=== PATIENT | female | born 1960 | race Two or more races ===

== ENCOUNTER 2017-03-12 05:37 | Day surgery (SDC) | payer OTHER ==
[2017-03-08 11:29] VITALS: BMI 37.0
[2017-03-12] MEDS ORDERED: LIDOCAINE HCL 1%, 10 MG/ML (20ML VIAL) ONE (13:08)
[2017-03-12] MEDS ORDERED: ceFAZolin SODIUM 1 GM VIAL IVPB ONE (13:28)
[2017-03-12] MEDS ORDERED: MIDAZOLAM HCL 2 MG/2 ML SINGLE DOSE VIAL ONE ×2 (13:32→13:47)
[2017-03-12] MEDS ORDERED: PROPOFOL 20 ML ONE (14:13)
--- NOTE | 2017-03-12 14:40 | OP ---
Operative Note - Note: Operative Date: 03/12/17 Pre-Operative Diagnosis: neurogenic bladder Operation: full interstim implant Implants: Interstim neuromodulator Post-Operative Diagnosis: Same as Pre-op Surgeon: Jai Cao Anesthesia: General, Local, Fractional Operative Report Dictated: Yes
[2017-03-12] MEDS ORDERED: oxyCODONE HCL 5 MG TABLET PO PRN (15:23)
[2017-03-12] MEDS ORDERED: ONDANSETRON 4 MG/2 ML VIAL IVPUSH PRN (15:23)
[2017-03-12] MEDS ORDERED: LACTATED RINGERS SOLUTION 1,000 ML IV SCH (15:30)
[2017-03-12 15:40] VITALS: TEMP 98.3
[2017-03-12 17:10] VITALS: BP 138/80; PULSE 76
--- NOTE | 2017-03-19 13:58 | OP ---
DATE OF OPERATION: 03/12/2017 PREOPERATIVE DIAGNOSES: Urinary incontinence and neurogenic bladder. POSTOPERATIVE DIAGNOSES: Urinary incontinence and neurogenic bladder. PROCEDURE: 1. Complete InterStim system implantation with incision and implantation of tined quadripolar lead electrodes into foramen S3. 2. Fluoroscopic guidance for needle placement. 3. Subcutaneous implantation of sacral nerve neurostimulator, electronic analysis and complex programming. INDICATIONS FOR THE PROCEDURE: Patient has severe urinary frequency and urgency with urge incontinence. The patient was informed of the risks and benefits of the procedures and agreed to undertake this procedure. DESCRIPTION OF PROCEDURE: The patient was properly identified and placed in prone position as per operating room protocol. MAC anesthesia was administered. The patient was given 1 g of Ancef. Pillows were placed under the lower abdomen to flatten the sacrum and under the shins to allow the toes to dangle freely. Tape was placed on each buttock and pulled laterally to separate cheeks adequately to visualize anal sphincter. The patient was prepped and draped in the usual sterile manner using ChloraPrep prep solution. The C-arm was moved into the PA position to provide fluoroscopy visual and the midline of the vertebrae. S1 notches and medial foraminal borders were marked. The C-arm was moved to the lateral position to image the area from sacral promontory to the coccyx. Local injection of lidocaine was administered. A 3.5-inch size needle was introduced approximately 2 cm above the SI notch and 3 cm lateral to the vertebral midline, feeling for foraminal margins until the S3 foramen was identified and penetrated. The depth of the needle was confirmed and adjusted fluoroscopically. Proper needle position was confirmed by patient identification of location of sensation, direct observation of the lifting of the perineum or bellowing, and observation of plantar flexion of the great toe utilizing the test stimulator box. The needle stylet was removed and a directional guidewire was placed and confirmed fluoroscopically. The foramen needle was removed. An incision was made peripherally to the directional guidewire through the fascial layer. The dilator and introducer sheath were placed over the directional guidewire and directed into the foramen until the opaque marker of the dilator was seen on the anterior rim of the sacrum. The dilator obturator was unlocked and removed. The lead was then placed through the introducer sheath to the first white line. Position was checked fluoroscopically. The lead was then further introduced until 3 electrodes were visible below the sacrum. Each electrode was tested for location of patient sensation, visualization of mariella and plantar flexion of the great toe. After satisfactory positioning was confirmed, under continuous fluoroscopy, the introducer sheath was retracted, deploying the lead tines into the perisacral tissue. Further incision was made into the subcutaneous tissue posterior to the iliac crest and blunt dissection was continued until the gluteal fascia was identified and hemostasis was achieved, allowing for a sufficient pocket for the neurostimulator. A tunneling tool and tube were placed from the lead subcutaneously to the incised pocket site. The tunneling tool was removed and the lead was fed through the tube and pulled out at the pocket site. The lead was cleansed of bodily fluids and a boot was placed over the lead. The lead was inserted into the InterStim II pulse generator and the metal bands were aligned with the white lead tip clearly visible in the distal portion of the pulse generator header. The single set screw was tightened with the hex wrench. The pulse generator was placed into the subcutaneous pocket with the etched identification side placed upward and the extension wrapped counterclockwise around the pulse generator. The programming head was placed over the implanted neurostimulator. The impedance was verified to ensure adequate lead placement and the parameters were within normal limits. If impedance is greater than the normal limits, a second interrogation is required. If the second interrogation is required, further troubleshooting may be required. Impedances were checked, confirmed to be within normal limits at greater than 50 and less than 4000. After implantation of the neurostimulator was completed, complex programming of the neurostimulator was performed based on impedance values. Final electrode sensations were set to 0+1-2-. Estimated time for analysis and complex programming was 30 minutes. The wounds were irrigated with antibiotic solution and water and closed with a subcutaneous and subcuticular stitch. Counts were correct. Steri-Strips and gauze were placed over the incision under the cable connector. The estimated blood loss was less than 3 mL. The patient was transferred to postop in satisfactory condition. Using the clinician embedded software programmer, the patient was programmed to the lead of optimum sensation and given instructions on utilizing the patient embedded software programmer prior to discharge. ADIEL BLEDSOE M.D. [id number]
== END 2017-03-12 17:11 | disposition home or self-care (01) ==
LOC: JASU-SURG 05:37
PROVIDERS: ATTEND Urology
PROC: 01HY0MZ Insertion of Neurostimulator Lead into Peripheral Nerve, Open Approach (ICD-10-PCS; 2017-03-12)
PROC: 0JH70BZ Insertion of Single Array Stimulator Generator into Back Subcutaneous Tissue and Fascia, Open Approach (ICD-10-PCS; principal; 2017-03-12 13:45)
DX: N39.498 Other specified urinary incontinence (principal); N31.9 Neuromuscular dysfunction of bladder, unspecified
CPT/HCPCS: 64581; 64590; L8680; L8686; 76000-TC; 94760

== ENCOUNTER 2017-09-14 13:08 | Emergency (ER) | payer OTHER ==
[2017-09-14 13:22] VITALS: BP 151/77; PULSE 84; TEMP 98.1; BMI 38.4
[2017-09-14] MEDS ORDERED: KETOROLAC TROMETHAMINE 60 MG/2 ML VIAL IM ONE (15:05)
[2017-09-14] MEDS ORDERED: KETOROLAC TROMETHAMINE 60 MG/2 ML VIAL ONE (15:16)
[2017-09-14 15:19] LABS: URINE APPEARANCE SLCLOUDY; URINE BILIRUBIN NEGATIVE (NEGATIVE); URINE BLOOD 3+ (NEGATIVE); URINE COLOR YELLOW; URINE GLUCOSE (UA) NEGATIVE (NEGATIVE); URINE KETONE NEGATIVE (NEGATIVE); URINE NITRITE NEGATIVE (NEGATIVE); URINE UROBILINOGEN NEGATIVE mg/dL (0.2-1.0)
[2017-09-14 15:24] LABS: URINE LEUK ESTERASE 3+ (NEGATIVE); URINE PROTEIN 2+ (NEGATIVE)
[2017-09-14 15:38] LABS: EPI CELLS MODERATE /HPF (FEW); URINE MUCUS RARE
--- NOTE | 2017-09-14 15:44 | PDOC ---
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 pt denies abd pain denies numbness or tingling to the legs, no incontinence of urine or bowel. Occurred: reports: this afternoon Severity: reports: moderate Pain Location: reports: back Method of Injury: Yes: other (lifting and turning) Past History - Past Medical History Allergies/Adverse Reactions: Allergies Allergy/AdvReac Type Severity Reaction Status Date / Time No Known Allergies Allergy Verified 09/14/17 13:18 Home Medications: Ambulatory Orders Amlodipine Besylate 5 mg PO DAILY 03/08/17 Metformin HCl [Glucophage] 1,000 mg PO BID 03/08/17 Metoprolol Tartrate 50 mg PO DAILY 03/08/17 Sitagliptin Phosphate [Januvia] 50 mg PO DAILY 03/08/17 Ciprofloxacin HCl [Cipro] 500 mg PO BID #6 tablet 09/14/17 Cyclobenzaprine HCl [Flexeril -] 10 mg PO TID PRN #15 tablet 09/14/17 Naproxen [Naprosyn -] 500 mg PO BID PRN #14 tablet 09/14/17 Anemia: No Asthma: No Cancer: No Cardiac Disorders: No CVA: No COPD: No CHF: No Dementia: No Diabetes: Yes GI Disorders: No Disorders: No HTN: Yes Hypercholesterolemia: No Liver Disease: No Seizures: No Thyroid Disease: No - Surgical History Cholecystectomy: Yes Neurologic Surgery: Yes (spine cervial and lumbar) Orthopedic Surgery: Yes (l wrist) - Suicide/Smoking/Psychosocial Hx Smoking History: Never smoked Hx Alcohol Use: No Drug/Substance Use Hx: No Substance Use Type: None Hx Substance Use Treatment: No *Physical Exam - Vital Signs Last Vital Signs Temp Pulse Resp BP Pulse Ox 98.1 F 84 19 151/77 97 09/14/17 13:18 09/14/17 13:18 09/14/17 13:18 09/14/17 13:18 09/14/17 13:18 - Physical Exam General Appearance: Yes: Nourished, Appropriately Dressed, Obese HEENT: positive: EOMI, JUNIOR Neck: positive: Supple Respiratory/Chest: positive: Lungs Clear, Normal Breath Sounds Cardiovascular: positive: Regular Rhythm, Regular Rate Gastrointestinal/Abdominal: positive: Normal Bowel Sounds, Soft. negative: Tender Musculoskeletal: positive: Normal Inspection, Vertebral Tenderness (lumbar spine on the surgical scar) Extremity: positive: Normal Capillary Refill, Normal Inspection, Normal Range of Motion, Other (neg SLR bilaterally ). negative: Tender Integumentary: positive: Normal Color, Dry, Warm Neurologic: positive: Fully Oriented, Alert, Normal Mood/Affect, Normal Response , Motor Strength 5/5, Finger to Nose (intact) ED Treatment Course - ADDITIONAL ORDERS Additional order review: Laboratory Results 09/14/17 14:53 Urine Color Yellow Urine Appearance Slcloudy Urine pH 5.0 Ur Specific [place] 1.026 Urine Protein 2+ H Urine Glucose (UA) Negative Urine Ketones Negative Urine Blood 3+ H Urine Nitrite Negative Urine Bilirubin Negative Urine Urobilinogen Negative Ur Leukocyte Esterase 3+ H - RADIOLOGY Radiology Studies Ordered: Category Date Time Status SPINE-LUMBAR ONLY [RAD] Stat Radiology 09/14/17 15:33 Ordered - Medications Given in the ED: ED Medications Discontinued Medications Generic Name Dose Route Start Last Admin Trade Name Freq PRN Reason Stop Dose Admin Ketorolac Tromethamine 60 mg 09/14/17 15:05 09/14/17 15:19 Toradol Injection - IM 09/14/17 15:06 60 mg ONCE ONE Administration Medical Decision Making - Medical Decision Making 09/14/17 15:43 cc: low back pain after helping lift a patient at work pt has history of back and neck pain and surgeries in the past pt has no diff ambualting no saddle anesthesia neg urine or bowel dysfunction will give toradol and get xray of lumbar spine *DC/Admit/Observation/Transfer Diagnosis at time of Disposition: Back pain at L4-L5 level - Discharge Dispostion Disposition: HOME Condition at time of disposition: Good - Prescriptions Prescriptions: Ciprofloxacin HCl [Cipro] 500 mg PO BID #6 tablet Cyclobenzaprine HCl [Flexeril -] 10 mg PO TID PRN #15 tablet PRN Reason: Muscle Spasms Naproxen [Naprosyn -] 500 mg PO BID PRN #14 tablet PRN Reason: Back Pain - Referrals Referrals: Coy Acuña [Primary Care Provider] - - Patient Instructions Additional Instructions: take flexeril for any muscle spasms with naprosyn for pain take your percocet that you have for SEVERE pain warm compresses alternated with ice pack can help with pain follow with your doctor in 2-3 days for follow up and to repeat the urine test, today it had some blood and bacteria , we have sent a culture but will give you 3 days of antibiotic return to ER for any worsening symptoms - Post Discharge Activity Forms/Work/School Notes: Back to Work
== END 2017-09-14 16:30 | disposition home or self-care (01) ==
LOC: JERFT 13:08
PROC: 3E0233Z Introduction of Anti-inflammatory into Muscle, Percutaneous Approach (ICD-10-PCS; principal; 2017-09-14)
DX: S39.82XA Other specified injuries of lower back, initial encounter (principal); X50.0XXA Overexertion from strenuous movement or load, initial encounter; X50.9XXA Other and unspecified overexertion or strenuous movements or postures, initial encounter; Y93.F2 Activity, caregiving, lifting; Y92.128 Other place in nursing home as the place of occurrence of the external cause; Y99.0 Civilian activity done for income or pay; I10 Essential (primary) hypertension; E11.9 Type 2 diabetes mellitus without complications; Z79.84 Long term (current) use of oral hypoglycemic drugs
CPT/HCPCS: 72100-TC; 81003; 81015; 87086; 99281-25

== ENCOUNTER 2021-03-21 14:18 | Emergency (ER) | payer OTHER ==
[2021-03-21 14:59] VITALS: BP 130/61; PULSE 82; TEMP 98.2; BMI 31.1
[2021-03-21] MEDS ORDERED: ACETAMINOPHEN 500 MG TABLET (FP) PO ONE (15:06)
[2021-03-21] MEDS ORDERED: ACETAMINOPHEN 325 MG TABLET (FP) ONE (15:17)
[2021-03-21] MEDS ORDERED: IBUPROFEN 600 MG TABLET (FP) PO ONE ×2 (17:52→18:08)
== END 2021-03-21 18:13 | disposition home or self-care (01) ==
LOC: JER 14:18
DX: M54.6 Pain in thoracic spine (principal); S09.90XA Unspecified injury of head, initial encounter; S89.92XA Unspecified injury of left lower leg, initial encounter
CPT/HCPCS: 70450-TC; 72125-TC; 72128-TC; 72131-TC; 73562-TC-LT-FY; 99285-25

== ENCOUNTER 2024-12-16 12:17 | Emergency (ER) | payer OTHER ==
[2024-12-16 12:37] VITALS: RESP 20; TEMP 97.9; BMI 33.1
[2024-12-16 13:17] LABS: ABSOLUTE IMMATURE GRANULOCYTES 0.02 x10^3/uL (0.0-0.031); BASOPHILS # 0.04 x10^3/uL (0.01-0.08); EOSINOPHIL % 2.1 % (0.7-5.8); EOSINOPHILS # 0.16 x10^3/uL (0.04-0.36); HEMOGLOBIN 14.2 g/dL (11.2-15.7); MCHC 34.6 g/dl (32.2-35.5); MEAN CELL VOLUME 77.9 fl (79.4-94.8); MEAN PLT VOLUME 10.7 fl (9.4-12.3); MONOCYTE # 0.54 x10^3/uL (0.24-0.86); MONOCYTE % 7.2 % (4.7-12.5); PLATELET COUNT 290 x10^3/uL (182-369); RDW 13.7 % (12.4-16.4)
[2024-12-16 13:24] LABS: INR 1.15 (0.83-1.09); PROTHROMBIN TIME (PATIENT) 12.6 SEC (9.7-13.0)
[2024-12-16 13:27] LABS: ACTIVATED PTT 33.3 SECONDS (25.2-36.5)
[2024-12-16 13:47] LABS: CHLORIDE 103 mmol/L (98-107); SODIUM 134 mmol/L (136-145)
[2024-12-16 13:50] LABS: ALBUMIN 3.7 g/dl (3.4-5.0); BLOOD UREA NITROGEN 14.6 mg/dL (7-18); CALCIUM 10.5 mg/dL (8.5-10.1); CO2 25 mmol/L (21-32); GLUCOSE,RANDOM 110 mg/dL (74-106)
[2024-12-16 13:52] LABS: ANION GAP 6 mmol/L (4-13); POTASSIUM 6.1 mmol/L (3.5-5.1)
[2024-12-16 13:53] LABS: SGOT/AST 41 U/L (15-37); SGPT/ALT 23 U/L (13-61)
[2024-12-16 13:55] LABS: ALK PHOS 98 U/L (45-117); TOT PROT 8.3 g/dl (6.4-8.2)
[2024-12-16 14:56] LABS: POTASSIUM 5.8 mmol/L (3.5-5.1)
[2024-12-16 14:57] LABS: CALCIUM 11.2 mg/dL (8.5-10.1)
[2024-12-16 14:58] LABS: ALBUMIN 3.7 g/dl (3.4-5.0); BLOOD UREA NITROGEN 15.3 mg/dL (7-18)
[2024-12-16 15:03] LABS: BILIRUBIN,TOTAL 0.8 mg/dL (0.2-1)
[2024-12-16 15:22] LABS: N-TERMINAL BNP 34.2 pg/ml (5-125)
[2024-12-16] MEDS: LACTATED RINGERS SOLUTION 1000 ML INFUS.BAG IV ONE (16:09)
[2024-12-16 16:24] LABS: MAGNESIUM 1.9 mg/dL (1.8-2.4)
[2024-12-16 16:29] LABS: PHOSPHOROUS 3.1 mg/dL (2.5-4.9)
[2024-12-16 16:41] LABS: POTASSIUM 5.4 mmol/L (3.5-5.1)
[2024-12-16 16:47] LABS: ALBUMIN 3.8 g/dl (3.4-5.0); BLOOD UREA NITROGEN 15.9 mg/dL (7-18); CALCIUM 10.6 mg/dL (8.5-10.1); MAGNESIUM 2.1 mg/dL (1.8-2.4)
[2024-12-16 16:50] LABS: CREATININE 0.9 mg/dL (0.55-1.3)
[2024-12-16 16:52] LABS: TOT PROT 8.2 g/dl (6.4-8.2)
[2024-12-16 17:52] VITALS: BP 132/81; PULSE 81
== END 2024-12-16 17:59 | disposition home or self-care (01) ==
LOC: JER 12:17
DX: R07.89 Other chest pain (principal); R42 Dizziness and giddiness; R00.0 Tachycardia, unspecified; R61 Generalized hyperhidrosis
CPT/HCPCS: 0241U-QW; 36415; 71046-TC-FY; 80053; 82550; 82962; 83735; 83880; 84100; 84439; 84443; 84484; 85025; 85610; 85730; 93005; 93010; 99285-25